=== PATIENT | female | born 1980 | race Two or more races ===

== ENCOUNTER 2024-02-20 15:40 | Emergency (ER) | payer BC, MEDICARE ==
[2024-02-20] MEDS ORDERED: Sodium Chloride 0.9% 10 ML Syringe FLUSH PRN (16:09)
[2024-02-20 16:33] LABS: BASOPHILS PERCENT AUTO 0.5 % (0.2-1.5); EOSINOPHILS ABSOLUTE AUTO 0.1 x10-3/uL (0.0-0.8); EOSINOPHILS PERCENT AUTO 1.3 % (0.6-8.1); HEMATOCRIT 43.4 % (34.2-48.2); HEMOGLOBIN 14.7 g/dL (11.4-15.5); LYMPHOCYTES ABSOLUTE AUTO 1.6 x10-3/uL (1.0-4.4); LYMPHOCYTES PERCENT AUTO 31.6 % (18.4-52.1); MEAN CORPUSCULAR HEMOGLOBIN 30.9 pg (23.9-33.9); MEAN CORPUSCULAR HGB CONC 33.9 g/dL (31.9-34.8); MEAN CORPUSCULAR VOLUME 91.1 fL (76.7-100.5); MEAN PLATELET VOLUME 8.5 fL (7.1-12.4); MONOCYTES ABSOLUTE AUTO 0.3 x10-3/uL (0.3-1.0); MONOCYTES PERCENT AUTO 5.2 % (4.4-15.7); NEUTROPHILS ABSOLUTE AUTO 3.1 x10-3/uL (1.5-6.3); NEUTROPHILS PERCENT AUTO 61.4 % (30.8-76.2); PLATELET COUNT,PLT 262 x10(3)uL (151-488); RED BLOOD CELL COUNT 4.76 x10(6)uL (3.60-5.20); RED CELL DISTRIBUTION WIDTH 12.9 % (12.3-16.5); WHITE BLOOD CELL COUNT,WBC 5.1 x10-3/uL (3.0-10.3)
[2024-02-20 16:38] LABS: BLOOD UREA NITROGEN,BUN 18 mg/dL (7-18); BUN/CREATININE RATIO 22.5 (9-20); CALCIUM 9.1 mg/dL (8.6-10.2); CARBON DIOXIDE,CO2 23 mmol/L (21-32); CHLORIDE,CL 106 mmol/L (100-110); CREATININE 0.8 mg/dL (0.55-1.02); EST CRCL DRUG DOSING (CG) 89.08 mL/min; ESTIMATED GFR 94 mL/min (>60); GLUCOSE RANDOM 105 mg/dL (80-116); POTASSIUM,K 3.5 mmol/L (3.5-5.3); SODIUM,NA 142 mmol/L (135-145)
[2024-02-20 16:44] LABS: A/G RATIO 1.4; ALANINE AMINOTRANSFERASE,ALT 17 U/L (12-36); ALBUMIN 4.2 g/dL (3.5-5.2); ALKALINE PHOSPHATASE 68 IU/L (56-112); ASPARTATE AMNIOTRANSFERASE,AST 9 IU/L (5-25); PROTEIN TOTAL,TP 7.3 g/dL (6.0-8.0)
[2024-02-20 16:47] LABS: LACTIC ACID 0.9 mmol/L (0.4-2.0)
[2024-02-20] MEDS: Acetaminophen 500 MG Tab PO ONE (17:02)
[2024-02-20] MEDS: Ondansetron 4 MG/2 ML SDV IVPUSH ONE (17:03)
[2024-02-20] MEDS: Iopamidol 755 Mg/ML 100 ML Bottle IV ONE (17:04)
[2024-02-20] MEDS: Ketorolac 30 MG/ML SDV IVPUSH ONE ×2 (17:06→17:11)
[2024-02-20] MEDS: Sodium Chloride 0.9% 1,000 ML IV SCH (17:08)
[2024-02-20] MEDS: metroNIDAZOLE 500 MG Tab PO ONE (18:07)
[2024-02-20] MEDS: Ciprofloxacin 500 MG Tab PO ONE (18:07)
[2024-02-23 02:32] LABS: ADENOVIRUS 40/41 PCR Not Detected; ASTROVIRUS PCR Not Detected; CAMPYLOBACTER PCR Not Detected; CRYPTOSPORIDIUM PCR Not Detected; CYCLOSPORA CAYETANENSIS PCR Not Detected; ENTAMOEBA HISTOLYTICA PCR Not Detected; ENTEROAGGREGATIVE E. COLI PCR Not Detected; ENTEROPATHOGENIC E. COLI PCR Not Detected; ENTEROTOXIGENIC E. COLI PCR Not Detected; GIARDIA LAMBLIA PCR Not Detected; NOROVIRUS GI/GII PCR Not Detected; PLESIOMONAS SHIGELLOIDES PCR Not Detected; ROTAVIRUS A PCR Not Detected; SALMONELLA PCR Not Detected; SAPOVIRUS PCR Not Detected; SHIG/ENTEROINVASIVE E COLI PCR Not Detected; SHIGA TOXIN-PRODUC E. COLI PCR Not Detected; VIBRIO CHOLERAE PCR Not Detected; VIBRIO PCR Not Detected; YERSINIA ENTEROCOLITICA PCR Not Detected
== END 2024-02-20 18:33 | disposition home or self-care (01) ==
LOC: FB.ED 15:40
DX: A09 Infectious gastroenteritis and colitis, unspecified (principal); E86.0 Dehydration; Z90.710 Acquired absence of both cervix and uterus; Z91.018 Allergy to other foods; Z88.0 Allergy status to penicillin; Z88.5 Allergy status to narcotic agent; Z91.040 Latex allergy status
CPT/HCPCS: 36415; 71045; 74177; 80053; 82150; 83605; 83690; 85025; 87040; 87507; 96361; 96374; 96375; 99284; A9270; J1885; J2405; J7030; Q9967; U0002

== ENCOUNTER 2024-08-01 02:30 | Emergency (ER) | payer MEDICARE ==
[2024-08-01] MEDS ORDERED: Lidocaine 2% 5 ML SDV INFILT ONE (02:31)
[2024-08-01] MEDS ORDERED: Lidocaine/Prilocaine 2.5-2.5% Crm 5 GM Tube TOP ONE (03:04)
== END 2024-08-01 03:35 | disposition home or self-care (01) ==
LOC: SUPCPDRO 02:30 → FB.ED 02:30
DX: S61.211A Laceration without foreign body of left index finger without damage to nail, initial encounter (principal); Z88.0 Allergy status to penicillin; Z91.018 Allergy to other foods; Z91.040 Latex allergy status; Z88.8 Allergy status to other drugs, medicaments and biological substances; Z79.899 Other long term (current) drug therapy; Z90.710 Acquired absence of both cervix and uterus; W29.0XXA Contact with powered kitchen appliance, initial encounter
CPT/HCPCS: 12001; 99282; A9270